=== PATIENT | female | born 1985 | race Caucasian/White ===

== ENCOUNTER 2022-03-29 04:07 | Outpatient (CLI) | payer OTHER, SELFPAY ==
[2022-03-29 10:26] LABS: Abs Immature Grans 0.01 10^3/uL (0.0-0.06); Absolute Basophil Count 0.04 10^3/uL (0.0-0.2); Absolute Eosinophil Count 0.31 10^3/uL (0.0-0.7); Absolute Lymphocyte Count 1.66 10^3/uL (1.2-3.4); Absolute Monocyte Count 0.49 10^3/uL (0.1-0.8); Absolute Neutrophil Count 3.65 10^3/uL (1.2-6.7); Basophils % 0.6; HCT 40.7 % (36.0-46.0); Immature Grans % 0.2; Lymphocytes % 26.9; MCH 28.5 pg (27.0-33.0); MCHC 31.9 % (32.0-36.0); MCV 89 fL (80-95); MPV 10.2 fL (8.0-11.0); Neutrophils % 59.3; Platelet Count 260 10^3/uL (130-400); RBC 4.56 10^6/uL (3.93-5.22); RDW 12.1 % (11.7-14.6); RDW-SD 40.2 fL; WBC 6.16 10^3/uL (4.4-10.8)
[2022-03-29 10:36] LABS: Hemoglobin A1C 5.2 % (<5.7)
[2022-03-29 11:03] LABS: ALT 22 U/L (14-59); AST 17 U/L (15-37); Albumin 3.9 g/dL (3.4-5.0); Alkaline Phosphatase 51 U/L (46-116); Anion Gap 8.4 mmol/L (3-11); BUN 8 mg/dL (7-18); Bilirubin, Total 0.4 mg/dL (0.2-1.0); CO2 27.6 mmol/L (21.0-32.0); CREATININE 0.6 mg/dL (0.55-1.02); Calcium 8.7 mg/dL (8.5-10.1); Calculated LDL 102 mg/dL (<100); Chloride 104 mmol/L (98-107); Cholesterol 175 mg/dL (<200); Estimated GFR 118.49 (mL/min/1.73m2); Glucose 85 mg/dL (74-106); HDL Cholesterol 62 mg/dL (40-60); Potassium 3.5 mmol/L (3.5-5.1); Sodium 140 mmol/L (136-145); Total Protein 7.8 g/dL (6.4-8.2); Triglyceride 58 mg/dL (<150)
[2022-03-29 12:11] LABS: Vitamin D 25 Total 63.4 ng/mL (30-100)
[2022-03-30 16:17] LABS: Homocysteine 6.1 umol/L (5.0-13.9)
[2022-03-31 10:32] LABS: Lipoprotein (a) 108 nmol/L (<75)
[2022-04-03 14:30] LABS: Fusarium moniliforme, IgE <0.35 kU/L (<0.35); Stemphyllium IgE <0.35 kU/L
[2022-04-03 14:37] LABS: Alternaria Tenuis IgE <0.35 kU/L; Aspergillus Fumigatus IgE <0.35 kU/L; Cladosporium IgE <0.35 kU/L; Penicillium chrysogenum IgE <0.35 kU/L
[2022-04-04 12:18] LABS: CLASS 0; Rhodotorula IgE <0.35 kU/L (<0.35)
[2022-04-06 17:31] LABS: Histamine Plasma 0.39 ng/mL (0-1.0)
== END 2022-03-29 04:08 | disposition home or self-care (01) ==
LOC: LBO 04:08
PROVIDERS: PCP Internal Medicine; Visit Provider Naturopath
DX: Z13.220 Encounter for screening for lipoid disorders (principal); E55.9 Vitamin D deficiency, unspecified; Z77.120 Contact with and (suspected) exposure to mold (toxic)
CPT/HCPCS: 36415; 80053; 80061; 82306; 83090; 83695; 86003; 83036; 83088; 85025

== ENCOUNTER 2022-04-21 01:23 | Outpatient (CLI) | payer OTHER, SELFPAY ==
[2022-04-21 12:00] LABS: FREE T4 0.88 ng/dL (0.76-1.46); TSH 0.03 uIU/mL (0.36-3.74)
[2022-04-24 09:12] LABS: Thyroglobulin Antibody <15 U/mL (<=60); Thyroperoxidase Antibody >1300 U/mL (<=60)
== END 2022-04-21 01:24 | disposition home or self-care (01) ==
LOC: LBO 01:28
PROVIDERS: PCP Internal Medicine; Visit Provider Naturopath
DX: E06.3 Autoimmune thyroiditis (principal)
CPT/HCPCS: 36415; 86376; 84439; 84443; 84481

== ENCOUNTER 2023-11-26 18:22 | Outpatient (REF) | payer OTHER, SELFPAY ==
--- NOTE | 2023-11-26 15:15 | TONSIL_PTH ---
PATIENT: Hans Gautam LOC: [facility] U#:[id number] AGE/SX: 38/F ROOM: RE11/26/[address]: Saul Robertson MD : 1985 BED: DIS: 11/26/2023 SPEC #: [id number] RECD: 11/27/23 12:46 STATUS: LIZZY REUche #: [id number] MELISSA: 11/26/23 15:[address]: Saul Robertson DEPT: Surgical Specimen RECD BY: Parris Marion ENTERED: 11/27/23 12:47 SP TYPE: TONSIL OTHR DR: Esteban Dash Tissues: 1 - TONSIL BIOPSY Procedures: GROSS AND MICRO LEVEL 4 Comments: [id number]
--- OUTSIDE RECORDS SUMMARY | 2023-11-26 18:24 | XMS_ITS | Continuity of Care Document ---
Author Name Unknown Organization [facility] Address [address] [place] [address] Care Team Providers Care Marine Engine Machinist Name Role Phone LIN CURTIS ND Primary Care Physician Encounter [facility] NBR [id number] Date(s): 06/01/22 - 06/01/22 [facility] [address] [place], [place] [address] Discharge Disposition: Home or Self Care Attending Physician: Kellee Caal APRN Allergies, Adverse Reactions, Alerts Substance Reaction Severity Status Animal Dander Moderate Active Augmentin 1 Auditory hallucination Severe Activ e Beef Rash of mouth Moderate Active [place] Moderate Active Glutens Anxiety Hives Moderate Active Nuts Swelling Severe Active Latex Swelling Severe Active Dairy throat sore, diarrhea Severe Active Wise meat Rash of mouth Moderate Active Pineapple Tongue swelling Severe Active Sugar Moderate Active Bees/Stinging Insects Unknown Active 1Patient states also causes fibromyalgia flare Assessment and Plan Future Appointments Future Scheduled Tests Radiology* US Thyroid 06/07/22 Medications EPINEPHrine 0.3 mg injectable kit 0.3 mg = 1 EA, Subcutaneous, Once, # 1 kits, 0 Refill(s) Start Date: 05/07/22 Status: Ordered magnesium glycinate 200 mg oral tablet 400 mg = 2 tab, Oral, Daily, 0 Refill(s) Start Date: 05/07/22 Status: Ordered KENO ATTENDANT Thyroid 60 mg oral tablet 3 tabs, Oral, Daily, 0 Refill(s) Start Date: 05/07/22 Status: Ordered Vitamin C 1000 mg oral tablet 1,000 mg = 1 tab, Oral, Daily, # 30 tab, 0 Refill(s) Start Date: 05/07/22 Status: Ordered Vitamin D3 5000 intl units oral capsule 125 mcg = 1 cap, Oral, Daily, with food, # 100 cap, 0 Refill(s) Start Date: 05/07/22 Status: Ordered ZyrTEC 10 mg oral tablet 10 mg = 1 tab, Oral, Daily, # 30 tab, 0 Refill(s) Start Date: 05/07/22 Status: Ordered Problem List Condition Confirmation Course Effective Dates Status H ealth Status Informant Acquired hypothyroidism Confirmed Active Anxiety disorder Confirmed Active Fibromyalgia Confirmed Active Goiter Confirmed Active Alva's disease Confirmed Active Irregular menstrual bleeding Confirmed Active Headache, variant migraine, with status migrainosus Confirmed Active Asthma, mild intermittent Confirmed Active Procedures Procedure Date Related Diagnosis Body Site Status History of surgery 2015 Comp leted Surgical removal of wisdom tooth 2004 Completed 1bone removed from jaw - bone graft Social History Social History Type Response Smoking Status Smoking tobacco use: Never tobacco user;Never entered on: 05/07/22 Sex Patient Care team information Personnel Name: LIN CURTIS ND Address: Address: [address] [address]- [place]
--- OUTSIDE RECORDS SUMMARY | 2023-11-26 18:24 | XMS_ITS | Continuity of Care Document ---
Author Name Unknown Organization [facility] Address [address] [place] [address] Care Team Providers Care Oversize Load Pilot Escort Name Role Phone LIN CURTIS ND Primary Care Physician Encounter [facility] NBR [id number] Date(s): 11/21/22 - 11/21/[address] [address] Encounter Diagnosis Autoimmune thyroiditis(Final) - Iron deficiency anemia, unspecified(Final) - Other fatigue(Final) - Discharge Disposition: Home or Self Care Attending Physician: LIN CURTIS ND Admitting Physician: LIN CURTIS ND Referring Physician: LIN CURTIS ND Allergies, Adverse Reactions, Alerts Substance Reaction Severity Status Animal Dander Moderate Active Augmentin 1 Auditory hallucination Severe Activ e Beef Rash of mouth Moderate Active [place] Moderate Active Glutens Anxiety Hives Moderate Active Nuts Swelling Severe Active Latex Swelling Severe Active Dairy throat sore, diarrhea Severe Active Wise meat Rash of mouth Moderate Active Pineapple Tongue swelling Severe Active Sugar Moderate Active Bees/Stinging Insects Unknown Active 1Patient states also causes fibromyalgia flare Assessment and Plan Future Appointments Medications EPINEPHrine 0.3 mg injectable kit 0.3 mg = 1 EA, Subcutaneous, Once, # 1 kits, 0 Refill(s) Start Date: 05/07/22 Status: Ordered magnesium glycinate 200 mg oral tablet 400 mg = 2 tab, Oral, Daily, 0 Refill(s) Start Date: 05/07/22 Status: Ordered ADMISSIONS COORDINATOR Thyroid 60 mg oral tablet 3 tabs, [...] 1bone removed from jaw - bone graft Results Laboratory List Name Date Ferritin 11/21/22 Free T4 11/21/22 T3 Free 11/21/22 Thyroid Peroxidase (TPO) Ab LC 11/21/22 Thyroid Stimulating Hormone 11/21/22 Most recent to oldest [Reference Range]: 1 T4 Free [0.61-1.12 ng/dL] 0.67 ng/dL (11/21/22 9:20 AM) T3 Free [2.50-3.90 pg/mL] 3.31 pg/mL 1 (11/21/22 9:20 AM) Ferritin Level [11.0-307.0 ng/mL] 45.2 n g/mL (11/21/22 9:20 AM) TSH [0.45-5.33 mIntlUnit/mL] 0.04 mIntlU nit/mL *LOW* (11/21/22 9:20 AM) TPO Ab LC [0-34 IntlUnit/mL] 286 IntlUni t/mL 2 *HI* (11/21/22 9:20 AM) 1Interpretive Data: Possible Interfering Substance: Biotin >10 ng/mL may falsely elevate Free T3 results 2Result Comment: Performed At: RN [facility] [address] [id number] Orin Mckee MD Ph:[phone] Social History Social History Type Response Smoking Status Smoking tobacco use: Never tobacco user;Never entered on: 05/07/22 Sex Patient Care team information Care Team Personnel Name: LIN CURTIS ND Position: No Access Member Role: Primary Care Physician Address: Address: [facility] [address] [place] [address]- Care Team Related Persons Name: LUKE BENNETT Address: Home [address] [place] [phone] [facility] Name: LUKE BENNETT Address: Home [address] [place] [phone] [facility] Name: LUKE BENNETT Address: [place] [address] [place] [phone] [facility] Name: BRAEDEN BENNETT Address: Home [address] [place], [place] [phone] Name: KEY OLIVEIRA
--- OUTSIDE RECORDS SUMMARY | 2023-11-26 18:24 | XMS_ITS | Continuity of Care Document ---
Author Name Unknown Organization [facility] Address [address] [place] [address] Care Team Providers Care Software Asset Manager Name Role Phone LIN CURTIS ND Primary Care Physician Encounter [facility] [facility] NBR [id number] Date(s): 06/07/22 - 06/07/[address] [address]- [place] Discharge Disposition: Home or Self Care Attending Physician: LIN CURTIS ND Admitting Physician: LIN CURTIS ND Allergies, Adverse Reactions, Alerts Substance Reaction Severity Status Animal Dander Moderate Active Augmentin 1 Auditory hallucination Severe Activ e Beef Rash of mouth Moderate Active [place] Moderate Active Glutens Anxiety Hives Moderate Active [...] 0 Refill(s) Start Date: 05/07/22 Status: Ordered MAT REPAIRER Thyroid 60 mg oral tablet 3 tabs, [...] removed from jaw - bone graft Results Radiology Reports * Exam Date Time Procedure Performing Provider Status 06/07/22 1:41 PM US Thyroid1 Maillet, Babatunde; Auth (Ve rified) Notes: (US Thyroid1) Reason For Exam: MULTINODULAR GOITER US Thyroid EXAM DESCRIPTION: US Thyroid 06/07/2022 INDICATION: MULTINODULAR GOITER TECHNIQUE: Chiu scale and color doppler ultrasound of the thyroid. COMPARISON: 07/15/2021 FINDINGS: Right thyroid lobe measures 3.6 x 1.3 x 1.3 cm and left thyroid lobe measures 3.5 x 1 x 0.8 cm. Isthmus measures 2 mm in AP dimension. Diffuse mildly heterogeneous thyroid echotexture as described previously. Small ovoid mixed echogenicity nodular lesion in the right thyroid lobe measuring approximately 4.8 x 3 x 2 mm without significant change, too small to characterize. No additional thyroid nodule identified by ultrasound. IMPRESSION: Small heterogeneous solid nodule in the right thyroid lobe without significant change in size from prior study, too small to characterize No additional thyroid nodule identified by ultrasound with mild nonspecific heterogeneous thyroid echotexture. JOB #: [id number] Final Signed by: Bk Tyler MD Signed (Electronic Signature): 06/07/2022 4:48 pm Social History Social History Type Response Smoking Status Smoking tobacco use: Never tobacco user;Never entered on: 05/07/22 Sex Note * Bk Tyler MD: VERIFY, VERIFY Event Display: Report EXAM DESCRIPTION: US Thyroid 06/07/2022 INDICATION: MULTINODULAR GOITER TECHNIQUE: Chiu scale and color doppler ultrasound of the thyroid. COMPARISON: 07/15/2021 FINDINGS: Right thyroid lobe measures 3.6 x 1.3 x 1.3 cm and left thyroid lobe measures 3.5 x 1 x 0.8 cm. Isthmus measures 2 mm in AP dimension. Diffuse mildly heterogeneous thyroid echotexture as described previously. Small ovoid mixed echogenicity nodular lesion in the right thyroid lobe measuring approximately 4.8 x 3 x 2 mm without significant change, too small to characterize. No additional thyroid nodule identified by ultrasound. IMPRESSION: Small heterogeneous solid nodule in the right thyroid lobe without significant change in size from prior study, too small to characterize No additional thyroid nodule identified by ultrasound with mild nonspecific heterogeneous thyroid echotexture. JOB #: [id number] Final Signed by: Bk Tyler MD Signed (Electronic Signature): 06/07/2022 4:48 pm Patient Care team information Personnel Name: LIN CURTIS ND Address: Address: [address] [place] [address]- [place]
--- OUTSIDE RECORDS SUMMARY | 2023-11-26 18:24 | XMS_ITS | Continuity of Care Document ---
Author Name Unknown Organization [facility] Ambulatory [facility] Address [address] [place] [address] Care Team Providers Care Mechanic Recovery Name Role Phone LIN CURTIS ND Primary Care Physician Encounter [facility] NBR [id number] Date(s): 06/04/23 - 06/04/23 [facility] [address] [place] [place] [address] Encounter Diagnosis Gynecologic exam normal(Discharge Diagnosis) - 06/04/23 Discharge Disposition: Home or Self Care Attending Physician: Kellee Caal APRN Referring Physician: LIN CURTIS ND Allergies, Adverse Reactions, Alerts Substance Reaction Severity Status Animal Dander Moderate Active Augmentin 1 Auditory hallucination Severe Activ e Beef Rash of mouth Moderate Active [place] Moderate Active Glutens Anxiety Hives Moderate Active [...] 0 Refill(s) Start Date: 05/07/22 Status: Ordered DISTRICT MANAGER PRIMARY CARE SALES Thyroid 60 mg oral tablet 3 tabs, Oral, Daily, total dose is 165mg, 0 Refill(s) Start Date: 05/07/22 Status: Ordered sertraline 50 mg oral tablet 0 Refill(s) Start Date: 06/04/23 Status: Ordered Vitamin C 1000 mg oral [...] 1bone removed from jaw - bone graft Vital Signs Most recent to oldest [Reference Range]: 1 Blood Pressure [90-140/60-90 mmHg] 100/6 4mmHg (06/04/23 9:21 AM) Mean Arterial Pressure, Cuff [70-110 mmH g] 76 mmHg (06/04/23 9:21 AM) Weight 69 kg (06/04/23 9:21 AM) Weight Measured (lbs) 152.119 lb (06/04/23 9:21 AM) Weight Dosing 69.000 kg (06/04/23 9:21 AM) [place] Body Weight Calculated 52.4 kg (06/04/23 9:21 AM) Height 160.02 cm (06/04/23 9:21 AM) Height/Length Measured (inches) 63 inch (06/04/23 9:21 AM) BSA Measured 1.75 m2 (06/04/23 9:21 AM) Body Mass Index 26.95 kg/m2 (06/04/23 9:21 AM) Social History Social History Type Response Smoking Status Smoking tobacco use: Never tobacco user;Never entered on: 06/04/23 Sex Physician Outpatient Note * Kellee Caal, BREAD PAN GREASER: PERFORM Event Display: Office Clinic Note Physician Authored Date: [id number] SULY BENNETT :1985 Age:37 years Sex:Female Visit Date:06/04/2023 Primary Care Physician: LIN CURITS ND Chief Complaint WWE no concerns History of Present Illness MEDICAL RECORDS ASSISTANT History:?? When reviewing the menstrual history:??She states her cycles are generally monthly and regular. Her pap smear history is??unremarkable..?? Last Pap??03/2022 Neg/Neg For contraception the couple depends upon??condoms..?? Her breast health is??relatively unremarkable..?? Pain with intercourse??is absent..?? In review of her sexual relationship:??she is in a monogamous, healthy, and longstanding relationship..?? When discussing exercise she says she??is active outside with activities..?? Review of Systems GENERAL??Overall she feels well.. CARDIAC??She states she's not had a significant change recently in exercise tolerance.,??No recent palpitations, chest pains, or other heart related complaints.. RESPIRATORY??No recent changes with her breathing.. /MEDICAL RECORDS ASSISTANT No complaints..ENDOCRINOLOGIC??She has Alva.. DEPRESSION SCREENING TOOL??She states she recently started Zoloft. Physical Exam Vitals & Measurements BP:??100/64?? HT:??160.02??cm?? WT:??69??kg?? BMI:??26.95?? BSA:??1.75?? [facility] General Physical Exam:?GENERAL?Alert and oriented, well nourished, no acute distress. Reasonable historian.?EYES Pupils equal ? HEENT Normocephalic, grossly normal hearing, moist oral mucosa ? NECK?Supple, no thyroid enlargement, no lymphadenopathy?RESPIRATORY?Clear to auscultation, non-labored respiration ?CARDIAC?Normal rate, regular rhythm, no murmurs ?EXTREMITIES?Grossly normal exam..?MUSCULOSKELETAL?Grossly normal strength bilaterally..?DERMATOLOGIC?Grossly normal exam..?NEUROLOGIC?Awake, alert, and oriented X4 ?BREAST EXAM?Nipples bilaterally appear normal. No worrisome masses or nipple discharge. Bilateral axillas are free of any worrisome lymphadenopathy..?? [facility] Pelvic Exam:?EXTERNAL GENITALIA?Labia majora and minora bilaterally are normal in appearance., Introitus is normal in external appearance..?VAGINA?Healthy rugated mucosa..?VAGINAL DISCHARGE?Thin, minimal, white discharge..?CERVIX?Healthy in appearance..?UTERUS?Small and normal in contours., Uterus is nontender.??Adnexal areas bilaterally are normal in size and are nontender..? Assessment/Plan 1.??Gynecologic exam normal??Z01.419 We discussed general health maintenance and improvement strategies. Maintaining a healthy diet richin Calcium, Vitamin D, and [place] 3s is recommended for overall health. She has been low in the pastwith her Vit D level. Recommended she have it checked regularly if she continues to take 5000 IUs. Recommended daily Vit D is 800-1000 IUs. Also wondering if the Alva's is affecting her even though her levels seem to be ok. Encouraged here to discuss with PCP and consider endocrine referral. Follow Up Instructions prn, 1??year Problem List/Past Medical History Ongoing Acquired hypothyroidism Anxiety disorder Asthma, mild intermittent Fibromyalgia Goiter Alva's disease Headache, variant migraine, with status migrainosus Irregular menstrual bleeding Historical Procedure/Surgical History ???History of surgery (2015)???Surgical removal of wisdom tooth (2004) Medications EPINEPHrine 0.3 mg injectable kit, 0.3 mg= 1 EA, Subcutaneous, Once magnesium glycinate 200 mg oral tablet, 400 mg= 2 tab, Oral, Daily DISTRICT MANAGER PRIMARY CARE SALES Thyroid 60 mg oral tablet, 3 tabs, Oral, Daily sertraline 50 mg oral tablet Vitamin C 1000 mg oral tablet, 1000 mg= 1 tab, Oral, Daily Vitamin D3 5000 intl units oral capsule, 125 mcg= 1 cap, Oral, Daily Allergies Augmentin??(Auditory hallucination) Dairy??(throat sore, diarrhea) Latex??(Swelling) Nuts??(Swelling) Pineapple??(Tongue swelling) Animal Dander Beef??(Rash of mouth) [place] Glutens??(Anxiety, Hives) Wise meat??(Rash of mouth) Sugar Bees/Stinging Insects Social History Alcohol Current, 1-2 times per year Electronic Cigarette/Vaping Electronic Cigarette Use: Never. 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 Exercise Home/Environment Lives with Children, Spouse. Living situation: Home/Independent. Sexual Sexually active: Yes. Substance Use Never Tobacco Never tobacco user Tobacco Use:. Never Smokeless Tobacco use:. Family History AMI - Acute myocardial infarction: Mother. Alive: Daughter and Son. Arthritis: Mother. Breast cancer: Aunt/Uncle and Grandmother (M). Cancer: Aunt/Uncle. Dementia: Grandmother (P). Diabetes mellitus: Grandfather (P). Hypercholesterolemia: Father and Grandfather (M). Hypertension: Father and Grandfather (M). Lyme disease: Negative: Mother. Migraine: Mother and Brother. Other: Sister. Parkinsons disease: Grandmother (P). Electronically Signed on 06/04/23 02:50 PM Kellee Caal APRN Patient Care team information Care Team Personnel Name: LIN CURTIS ND Position: No Access Member Role: Primary Care Physician Address: Address: [facility] [address] [facility] [address] [place] [address]- Care Team Related Persons Name: LUKE BENNETT Address: Home [address] [facility] [place], [place] [phone] [facility] Name: LUKE BENNETT Address: Home [address] [place], [place] [phone] [facility] Name: LUKE BENNETT Address: Home [address] [place] [phone] [facility] Name: BRAEDEN BENNETT Address: [place] [address] [place] [phone] Name: KEY OLIVEIRA
--- OUTSIDE RECORDS SUMMARY | 2023-11-26 18:24 | XMS_ITS | Continuity of Care Document ---
Author Name Unknown Organization [facility] Ambulatory Clinics Address [address] [place] [address] Encounter [facility] NBR [id number] Date(s): 05/27/22 - 05/27/22 [facility] Ambulatory Clinics [address], [place] [address] Encounter Diagnosis URI (upper respiratory infection)(Discharge Diagnosis) - 05/27/22 Sorethroat(Discharge Diagnosis) - 05/27/22 Discharge Disposition: Home or Self Care Attending Physician: Adis Fontanez. PA Allergies, Adverse Reactions, Alerts Substance Reaction Severity Status Augmentin 1 Auditory hallucination Severe Activ e Beef Rash of mouth Moderate Active Bees/Stinging Insects Unknown Active Glutens Anxiety Hives Moderate Active Nuts Swelling Severe Active Latex Swelling Severe Active Wise meat Rash of mouth Moderate Active Pineapple Tongue swelling Severe Active 1Patient states also causes fibromyalgia flare Assessment and Plan Future Appointments Future Scheduled Tests Radiology* US Thyroid 06/07/22 Functional Status 05/27/22 Other exposure to Infectious Disease Non e Medications EPINEPHrine 0.3 mg injectable kit 0.3 mg = 1 EA, Subcutaneous, Once, # 1 kits, 0 Refill(s) Start Date: 05/07/22 Status: Ordered magnesium glycinate 200 mg oral tablet 400 mg = 2 tab, Oral, Daily, 0 Refill(s) Start Date: 05/07/22 Status: Ordered MASTIC SPRAYER Thyroid 60 mg oral tablet 3 tabs, [...] bone graft Results Laboratory List Name Date SARS-CoV-2 (COVID-19) Antigen (Binax) PO CT 05/27/22 Most recent to oldest [Reference Range]: 1 SARS-CoV-2 (COVID-19) Ag (Binax) [Negati ve] Negative (05/27/22 12:45 PM) Vital Signs Most recent to oldest [Reference Range]: 1 Temperature Tympanic [36.6-37.9 Deg C] 3 7.3 Deg C (05/27/22 12:52 PM) Peripheral Pulse Rate [60-100 bpm] 106 b pm *HI* (05/27/22 12:52 PM) Blood Pressure [90-140/60-90 mmHg] 114/6 6mmHg (05/27/22 12:52 PM) Social History Social History Type Response Smoking Status Smoking tobacco use: Never tobacco user;Never entered on: 05/07/22 Sex Hospital Discharge Instructions Patient Education 05/27/2022 12:22:41 Upper Respiratory Infection, Adult, Khct-uv-[id number] Upper Respiratory Infection, Adult An upper respiratory infection (URI) affects the nose, throat, and upper air passages. URIs are caused by germs (viruses). The most common type of URI is often called the common cold. Medicines cannot cure URIs, but you can do things at home to relieve your symptoms. URIs usually get better within 7???10 days. Follow these instructions at home: Activity ??? Rest as needed. ??? If you have a fever, stay home from work or school until your fever is gone, or until your doctor says you may return to work or school. ??? You should stay home until you cannot spread the infection anymore (you are not contagious). ??? Your doctor may have you wear a face mask so you have less risk of spreading the infection. Relieving symptoms ??? Gargle with a salt-water mixture 3???4 times a day or as needed. To make a salt-water mixture, completely dissolve ?1 tsp of salt in 1 cup of warm water. ??? Use a cool-mist humidifier to add moisture to the air. This can help you breathe more easily. Eating and drinking ??? Drink enough fluid to keep your pee (urine) pale yellow. ??? Eat soups and other clear broths. General instructions ??? Take zhfr-lmj-npusqbf and prescription medicines only as told by your doctor. These include cold medicines, fever reducers, and cough suppressants. ??? Do not use any products that contain nicotine or tobacco. These include cigarettes and e-cigarettes. If you need help quitting, ask your doctor. ??? Avoid being where people are smoking (avoid secondhand smoke). ??? Make sure you get regular shots and get the flu shot every year. ??? Keep all follow-up visits as told by your doctor. This is important. How to avoid spreading infection to others ??? Wash your hands often with soap and water. If you do not have soap and water, use hand billing assistant. ??? Avoid touching your mouth, face, eyes, or nose. ??? Cough or sneeze into a tissue or your sleeve or elbow. Do not cough or sneeze into your hand orinto the air. Contact a doctor if: ??? You are getting worse, not better. ??? You have any of these: ??? A fever. ??? Chills. ??? Brown or red mucus in your nose. ??? Yellow or brown fluid (discharge)coming from your nose. ??? Pain in your face, especially when you bend forward. ??? Swollen neck glands. ??? Pain with swallowing. ??? White areas in the back of your throat. Get help right away if: ??? You have shortness of breath that gets worse. ??? You have very bad or constant: ??? Headache. ??? Ear pain. ??? Pain in your forehead, behind your eyes, and over your cheekbones (sinus pain). ??? Chest pain. ??? You have long-lasting (chronic) lung disease along with any of these: ??? Wheezing. ??? Long-lasting cough. ??? Coughing up blood. ??? A change in your usual mucus. ??? You have a stiff neck. ??? You have changes in your: ??? Vision. ??? Hearing. ??? Thinking. ??? Mood. Summary ??? An upper respiratory infection (URI) is caused by a germ called a virus. The most common type of URI is often called the common cold. ??? URIs usually get better within 7???10 days. ??? Take vvep-pov-dramcgk and prescription medicines only as told by your doctor. This information is not intended to replace advice given to you by your health care provider. Make sure you discuss any questions you have with your health care provider. Document Revised: 01/20/2021 Document Reviewed: 01/20/2021 [employer] Patient Education ?? 2021 [employer] Physician Outpatient Note * Adis Fontanez. PA: PERFORM Event Display: Office Clinic Note Physician Authored Date: [id number] SULY BENNETT :1985 Age:36 years Sex:Female Visit Date:05/27/2022 Chief Complaint Pt reports [facility], [place], fever x 3 days. Notes pain when swallowing. History of Present Illness Started 3 days ago with sore throat, congestion. ??No cough. ??Had influenza 1 to 2 weeks ago completely recovered. ??No shortness of breath, nausea, vomiting, diarrhea. ??Otherwise been well. ??Daughter with similar symptoms. Physical Exam Vitals & Measurements T:??37.3?C ??(Tympanic)?? HR:??106??(Peripheral)?? BP:??114/66?? SpO2:??98%?? Pain Score:??8?? General: Alert and oriented, well nourished, no acute distress. Eye:??Pupils are reactive, conjunctiva clear. HENT: Normocephalic, clear tympanic membranes, throat clear no exudate and uvula is midline Neck: Supple, non-tender, no lymphadenopathy Lungs: Clear to auscultation and percussion, non-labored respiration. Heart: Normal rate, regular rhythm, no murmur, gallop or edema. Musculoskeletal: Normal range of motion and strength, no tenderness or swelling. Skin: Skin is warm, dry, no rashes or lesions in examined areas. Neurologic: Awake, alert and oriented X3, normal cognition and interaction. Psychiatric: Cooperative, appropriate mood and affect. Assessment/Plan 1.??URI (upper respiratory infection)??J06.9 Rapid strep negative. ??Suspect viral etiology short duration typical viral progression. ??Follow-up if worse or not improving over the next 5 to 7 days. Ordered: Rapid Strep Clinic POC (RE), 05/27/22 13:22:00 EST, URI (upper respiratory infection) Sorethroat,05/27/22 13:22:00 EST ?? 2.??Sorethroat??J02.9 Ordered: Rapid Strep Clinic POC (RE), 05/27/22 13:22:00 EST, URI (upper respiratory infection) Sorethroat,05/27/22 13:22:00 EST ?? Patient Instructions Recommend rest, fluids, Tylenol for pain. ??Recheck if not improving over the 5 to 7 days. Patient Education Upper Respiratory Infection, Adult, Riek-kr-Zhzg Problem List/Past Medical History Ongoing Acquired hypothyroidism Anxiety disorder Asthma, mild intermittent Fibromyalgia Goiter Alva's disease Headache, variant migraine, with status migrainosus Irregular menstrual bleeding Historical Procedure/Surgical History ???History of surgery (2015)???Surgical removal of wisdom tooth (2004) Medications EPINEPHrine 0.3 mg injectable kit, 0.3 mg= 1 EA, Subcutaneous, Once magnesium glycinate 200 mg oral tablet, 400 mg= 2 tab, Oral, Daily MASTIC SPRAYER Thyroid 60 mg oral tablet, 3 tabs, Oral, Daily Vitamin C 1000 mg oral tablet, 1000 mg= 1 tab, Oral, Daily Vitamin D3 5000 intl units oral capsule, 125 mcg= 1 cap, Oral, Daily ZyrTEC 10 mg oral tablet, 10 mg= 1 tab, Oral, Daily Allergies Augmentin??(Auditory hallucination) Latex??(Swelling) Nuts??(Swelling) Pineapple??(Tongue swelling) Beef??(Rash of mouth) Glutens??(Anxiety, Hives) Wise meat??(Rash of mouth) Bees/Stinging Insects Social History Alcohol Current, 1-2 times per year Electronic Cigarette/Vaping Electronic Cigarette Use: Never. 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 Home/Environment Lives with Children, Spouse. Living situation: Home/Independent. Sexual Sexually active: Yes. Tobacco Never tobacco user Tobacco Use:. Never Smokeless Tobacco use:. Family History AMI - Acute myocardial infarction: Mother. Arthritis: Mother. COPD - Chronic obstructive pulmonary disease: Father. Diverticulitis: Father. Migraine: Mother. Pancreatitis: Father. Electronically Signed on 05/27/22 01:24 PM [facility] Outpatient Summary note * Adis Fontanez. PA: PERFORM Event Display: Ambulatory Patient Summary Authored Date: [id number] SULY BENNETT :1985 Age:36 years Sex:Female Visit Date:05/27/2022 Ambulatory Visit Instructions We would like to thank you for allowing us to assist you with your healthcare needs. The following includes patient education materials and information regarding your injury/illness. After you leave the office, you may get your health information including your test results, physician notes and discharge information by accessing your Patient Portal. If you do not have a patient portal account set up, please contact __. Your Next Steps Instructions From Your Care Team Recommend rest, fluids, Tylenol for pain. ??Recheck if not improving over the 5 to 7 days. Scheduled Future Appointments 2022 10:00 AM EST ?? With: Kellee Caal APRN Where: [facility] Women's Health Status: Confirmed Sunday 1:00 PM EST ?? Where: [facility] Diagnostic Imaging Status: Confirmed Medications What How Much When Instructions Unchanged ascorbic acid (Vitamin C 1000 mg oral tablet) 1 tab Oral (given by mouth) Every day Unchanged cetirizine (ZyrTEC 10 mg oral tablet) 1 tab Oral (given by mouth) Every day Unchanged cholecalciferol (Vitamin D3 5000 intl units oral capsule) 1 Capsules Oral (given by mouth) Every day with food ?? Unchanged EPINEPHrine (EPINEPHrine 0.3 mg injectable kit) 1 Each Subcutaneous (under the skin) Once Unchanged magnesium glycinate (magnesium glycinate 200 mg oral tablet) 2 tab Oral (given by mouth) Every day Unchanged thyroid desiccated (MASTIC SPRAYER Thyroid 60 mg oral tablet) 3 tabs Oral (given by mouth) Every day Your Summary Your Diagnosis URI (upper respiratory infection) Sorethroat Tests Performed/Pending SARS-CoV-2 (COVID-19) Antigen (Binax) POCT Your Care Team Attending Physician - Adis Fontanez. PA Allergies Augmentin??(Auditory hallucination) Latex??(Swelling) Nuts??(Swelling) Pineapple??(Tongue swelling) Beef??(Rash of mouth) Glutens??(Anxiety, Hives) Wise meat??(Rash of mouth) Bees/Stinging Insects Education Materials Upper Respiratory Infection, Adult An upper respiratory infection (URI) affects the nose, throat, and upper air passages. URIs are caused by germs (viruses). The most common type of URI is often called the common cold. Medicines cannot cure URIs, but you can do things at home to relieve your symptoms. URIs usually get better within 7???10 days. Follow these instructions at home: Activity ? Rest as needed. ? If you have a fever, stay home from work or school until your fever is gone, or until your doctor says you may return to work or school. ? You should stay home until you cannot spread the infection anymore (you are not contagious). ? Your doctor may have you wear a face mask so you have less risk of spreading the infection. Relieving symptoms ? Gargle with a salt-water mixture 3???4 times a day or as needed. To make a salt- water mixture, completely dissolve ?1 tsp of salt in 1 cup of warm water. ? Use a cool-mist humidifier to add moisture to the air. This can help you breathe more easily. Eating and drinking ? Drink enough fluid to keep your pee (urine) pale yellow. ? Eat soups and other clear broths. General instructions ? Take bcyw-xqg-aobusen and prescription medicines only as told by your doctor. These include cold medicines, fever reducers, and cough suppressants. ? Do not use any products that contain nicotine or tobacco. These include cigarettes and e-cigarettes. If you need help quitting, ask your doctor. ? Avoid being where people are smoking (avoid secondhand smoke). ? Make sure you get regular shots and get the flu shot every year. ? Keep all follow-up visits as told by your doctor. This is important. How to avoid spreading infection to others ? Wash your hands often with soap and water. If you do not have soap and water, use hand billing assistant. ? Avoid touching your mouth, face, eyes, or nose. ? Cough or sneeze into a tissue or your sleeve or elbow. Do not cough or sneeze into your hand or into the air. Contact a doctor if: ? You are getting worse, not better. ? You have any of these: ? A fever. ? Chills. ? Brown or red mucus in your nose. ? Yellow or brown fluid (discharge)coming from your nose. ? Pain in your face, especially when you bend forward. ? Swollen neck glands. ? Pain with swallowing. ? White areas in the back of your throat. Get help right away if: ? You have shortness of breath that gets worse. ? You have very bad or constant: ? Headache. ? Ear pain. ? Pain in your forehead, behind your eyes, and over your cheekbones (sinus pain). ? Chest pain. ? You have long-lasting (chronic) lung disease along with any of these: ? Wheezing. ? Long-lasting cough. ? Coughing up blood. ? A change in your usual mucus. ? You have a stiff neck. ? You have changes in your: ? Vision. ? Hearing. ? Thinking. ? Mood. Summary ? An upper respiratory infection (URI) is caused by a germ called a virus. The most common type of URI is often called the common cold. ? URIs usually get better within 7???10 days. ? Take tigj-zdx-beoynux and prescription medicines only as told by your doctor. This information is not intended to replace advice given to you by your health care provider. Make sure you discuss any questions you have with your health care provider. Document Revised: 01/20/2021 Document Reviewed: 01/20/2021 [employer] Patient Education ?? 2021 [employer] Electronically Signed on: 05/27/2022 13:23 ESTSigned by:VINOD
== END 2023-11-26 18:23 | disposition home or self-care (01) ==
LOC: LBN 18:22
PROVIDERS: PCP Naturopath; Visit Provider Otolaryngology
DX: K13.79 Other lesions of oral mucosa (principal); D10.4 Benign neoplasm of tonsil
CPT/HCPCS: 88305